=== PATIENT | male | born 1990 | race Caucasian/White ===

== ENCOUNTER 2023-08-26 18:00 | Emergency (ER) | payer OTHER, SELFPAY ==
[2023-08-26 18:05] VITALS: BP 149/104
[2023-08-26 18:28] LABS: % Basophils 0.8 % (0-2); % Immature Granulocytes 1.9 % (0-0.5); % Lymphocytes 18.8 % (20.5-51.1); % Neutrophils 71.5 % (42.2-75.2); Absolute Immature Granulocytes 0.1 10^3/uL (0-0.05); Absolute Monocytes 0.4 10^3/uL (0.1-0.6); Absolute Neutrophils 3.8 10^3/uL (1.4-6.5); Hemoglobin 16.9 g/dL (13.0-18.0); Mean Corp Hgb Conc. 36.7 g/dL (33.0-37.0); Mean Corpuscular Volume 81.7 fL (80.0-94.0); Mean Platelet Volume 9.9 fL (7.4-10.4); Nucleated Red Blood Cells % 0 % (-); Platelet Count 188 10^3/uL (130-400); Red Blood Cell Count 5.63 10^6/uL (4.70-6.10); Red Cell Dist. Width 12.4 % (11.5-14.5); White Blood Cell Count 5.3 10^3/uL (4.8-10.8)
[2023-08-26 18:54] LABS: ALT (SGPT) 89 U/L (0-50); AST (SGOT) 64 U/L (17-59); Alkaline Phosphatase 88 U/L (38-126); Blood Urea Nitrogen 16 mg/dl (9-20); Calcium 9.8 mg/dl (8.4-10.2); Carbon Dioxide 23 mmol/L (22-30); Chloride 102 mmol/L (98-107); Glucose 112 mg/dl (70-99); Sodium 137 mmol/L (135-145); Total Protein 7.9 g/dl (6.3-8.2); eGFR > 60.00
--- NOTE | 2023-08-26 20:21 | ED.GENMED ---
History of Present Illness
General
Chief Complaint: Cold/Flu/URI Symptoms
Source: patient
Time Seen by Provider: 08/26/23 19:57
History of Present Illness
History of Present Illness:
33yoM with no significant past medical history presenting for evaluation of URI symptoms x 2 days. Symptoms include malaise, fatigue, neck and back pain, and bilateral ear pain. He has been having low grade fevers up to 99.9 at home. His is
also sick with similar symptoms. Patient's family was concerned that he may have meningitis due to his symptoms. He was seen at urgent care prior to arrival. COVID and flu testing were reportedly normal. He was advised to report to the ED for
evaluation. Patient is otherwise asymptomatic and denies any vomiting, diarrhea, dysuria, rashes, chest pain, shortness of breath, abdominal pain. Patient recently traveled to the [facility]. Otherwise no travel. He does not
regularly see a PCP.
Phy Exam
Physical Exam
Physical Exam:
Patient awake, alert, non-toxic. No nuchal rigidity. Kernig's sign negative.
General Physical Exam
General Presentation: well appearing and no apparent distress
General age: appears stated age
General Skin: warm and dry
General Habitus: normal and obese
General Mental: alert
General Hydration: appears well hydrated
ENT Exam
ENT Exam: TM's normal, pharynx normal and neck supple
Cardiovascular Exam
Cardiovascular Exam: regular rate/rhythm and no murmur
Pulmonary Exam
Pulmonary Exam: lungs clear, no respiratory distress and no crackles
Gastrointestinal Exam
Gastrointestinal Exam: non tender, soft and non distended
Skin Exam
Skin Exam: normal color and warm/dry
Psychiatric Exam
Psychiatric Exam: normal mood/affect
Course
Orders/Labs/Results
Orders:
Orders
08/26/23 18:11
EKG [Electrocardiogram (*1)] Urgent
Reason for Study: Vertigo / Dizzy
EKG- Treatment ONCE
08/26/23 18:21
CMP [Comprehensive Metabolic Panel] Urgent
Complete Blood Count/With Diff Urgent
08/26/23 20:22
0.9% Sodium Chloride 1000 ml [Nss] 1,000 ml IV BOLUS
Ketorolac [Toradol] 15 mg IV NOW STA
08/26/23 21:27
Lyme Progressive Urgent
Abnormal Lab Results
08/26/23
18:21
Abs Immat Gran (auto) 0.1 H 10^3/uL
(0-0.05)
Absolute Lymphs (auto) 1.0 L 10^3/uL
(1.2-3.4)
Immature Gran % 1.9 H %
(0-0.5)
Lymphocytes % 18.8 L %
(20.5-51.1)
Glucose 112 H mg/dl
(70-99)
Total Bilirubin 2.0 H mg/dl
(0.2-1.3)
AST 64 H U/L
(17-59)
ALT 89 H U/L
(0-50)
08/26/23 18:21
08/26/23 18:21
Vital Signs
Initial and Last Documented VS:
Initial Vital Signs
Temp Pulse Resp BP Pulse Ox
99.8 F 123 18 149/104 95
08/26/23 18:05 08/26/23 18:05 08/26/23 18:05 08/26/23 18:05 08/26/23 18:05
Last Documented Vital Signs
Temp Pulse Resp BP Pulse Ox
99.8 F 103 19 141/93 95
08/26/23 18:05 08/26/23 21:37 08/26/23 21:37 08/26/23 21:37 08/26/23 21:37
MDM/Problems Addressed
Differential Diagnosis Includes:
33yoM here with flu-like symptoms x 2 days. C/o body aches, neck pain, VEGA, fatigue. Tmax 99.9. also sick. Sent here by urgent care. Family inquiring about possible meningitis although patient has no nuchal rigidity on exam and he is well
appearing. No focal signs of infection on exam. Patient is tachycardic to 123 on arrival with otherwise normal vital signs. Differential diagnosis includes but is not limited to: Viral syndrome, tickborne illness, doubt meningitis
Initial ED plan: Check CBC, CMP, Lyme testing. Discussed low clinical suspicion of meningitis with patient. He agrees to defer lumbar puncture. IV Toradol and fluid bolus for symptoms.
*Critical Care Note
Total Time (30-74mins, 75-104mins- exclusive of procedures): Not Applicable
Update Note
Update Note:
Labs reveal a normal white count. Mild transaminitis present with AST of 64, ALT 89, and total bilirubin 2.0. No prior labs to compare this to. Unclear etiology of transaminitis. This is possibly secondary to viral illness. Lyme testing
pending. Patient feeling improved on reevaluation and heart rate improved to 109. He is stable for discharge. Supportive care discussed. Advise close PCP follow-up. ED return precautions discussed. Patient was discharged in stable condition.
ED Attending Note
-
Portions of this chart may have been created with voice recognition software.� Occasional wrong word or��sound alike� substitutions may have occurred due to the inherent limitations of voice recognition software.
Discharge Plan
Departure
Patient Disposition: Home (Routine Discharge)
Date of Disposition: 08/26/23
Time of Disposition: 22:36
Patient with high blood pressure during this ER visit?: Yes
Discharge Problem:
Acute viral syndrome
Instructions: Fever, Adult (DC), Viral Syndrome (DC)
Referrals:
Amado Lopez MD [Family Provider] -
Stand Alone Forms: Return to Work
Activity Restrictions/Additional Instructions:
Drink plenty of fluids and rest. Take Tylenol and ibuprofen as needed for fever/body aches.
Please follow-up with your family doctor. Return to the ER with any worsening symptoms.
Interventions
Interventions:
*Risk Screen - Suicide Last Done: 08/26/23 18:05
*Neglect/Abuse Screening Last Done: 08/26/23 18:05
ED- Fall Risk Assessment Last Done: 08/26/23 21:36
*ED COVID-19 Vaccine History Last Done: 08/26/23 18:05
*Nursing Disposition Last Done: 08/26/23 22:59
ED- Pulmonary Assessment Last Done: 08/26/23 22:54
Discharge Date and Time
Discharge Date/Time: 08/26/23 23:00
Print Language: [id number]
[2023-08-26] MEDS: NSS 1000 IV (21:27)
[2023-08-26] MEDS: TORADOL 15 MG IV (21:28)
[2023-08-26 21:37] VITALS: BP 141/93
[2023-08-29 15:58] LABS: Lyme Antibody Screen, EIA Negative (Negative)
== END 2023-08-26 23:00 | disposition home or self-care (01) ==
LOC: EMR 18:00
PROVIDERS: Physician Assistant; EMERGENCY PHYSICIAN Emergency Medicine; FAMILY PHYSICIAN Family Medicine
DX: B34.9 Viral infection, unspecified (principal); R03.0 Elevated blood-pressure reading, without diagnosis of hypertension
CPT/HCPCS: 99284; 96374; 96361; 80053; 85025; 86618; 93005